=== PATIENT | male | born 1955 | race Caucasian/White ===

== ENCOUNTER 2023-10-24 09:44 | Outpatient (AMB) | payer MEDICARE, SELFPAY ==
--- NOTE | 2023-10-24 09:57 | MHC.OFFVIS ---
Intake Vital Signs 10/24/23 09:58 Height 5 ft 5 in Weight 184 lb BMI 30.6 Intake Visit Reasons: New Pt - Left Knee Pain Intake Note: Óscar is a 68 year old Male who presents as a new patient with Left knee pain and giving way. The patient states that he injured his left knee several years ago while exercising. He twisted his knee and had acute onset of pain. Since that time his symptoms have gotten worse in spite of continued non operative treatments. Did have a cortisone injection given into his left knee several weeks ago. That injection gave him minimal relief. He has also tried physical therapy exercises which aggravated his pain. The patient states that his left knee will give out several times per day. Allergies No Known Allergies Allergy (Verified 10/24/23 10:03) Medication List - Last Reconciled 10/24/23 by Kvng Hirsch MD lisinopril 10 mg PO DAILY PFSH Surgical History (Updated 10/24/23 @ 10:06 by Mercedes Perez CMA) Hx of left knee surgery Hx of prostatectomy (~04/2020) Social History (Updated 10/24/23 @ 10:06 by Mercedes Perez CMA) Patient Tobacco Use Status: Former Tobacco user Current occupational status: retired Physical Exam Vital Signs: BMI result Body Mass Index 30.6 Const Other: Well-nourished well-developed very friendly male awake alert and oriented x3 in no acute distress Extrem Other: Bilateral lower extremity examination shows good capillary refill, no skin lesions noted, normal sensation light touch Left knee examination shows a minimal effusion, minimal crepitus with range of motion, tenderness along his medial joint line, positive Aleks's test, no instability Results Reviewed Results Reviewed: Standing full weight-bearing x-rays of the patient's left knee show mild diffuse joint space narrowing, no acute bony abnormalities Assessment & Plan Assessment & Plan (1) Left knee pain: Code(s): M25.562 - Pain in left knee Plan Mr. Brown presents with progressively worsening left knee pain and mechanical symptoms most likely due to a tear of his medial meniscus. Thus, I will send the patient for an MRI of his left knee for further evaluation. I will see him back once the MRI is completed to discuss the findings and treatment options. He will continue with his activity modifications in the meantime. Feel free to call me at any time should questions regarding his orthopedic management arise. Thank you very much for asking me to see this very friendly gentleman. I spent 22 minutes in reviewing the patient's records and imaging studies, seeing the patient and documenting in the medical record. Orders: Orders XR knee LT 3V Today M25.562 - Pain in left knee MR knee LT wo con Today M25.562 - Pain in left knee Coding Level of Care Code New Pt Level 2 (16135) Diagnoses Left knee pain M25.562
[2023-10-24 09:58] VITALS: BMI 30.6
== END 2023-10-24 10:33 | disposition home or self-care (01) ==
PROVIDERS: Visit Provider Orthopaedic Surgery
DX: M25.562 Pain in left knee (principal)
CPT/HCPCS: 99202

== ENCOUNTER 2023-10-24 16:49 | Outpatient (REF) | payer MEDICARE, SELFPAY | END 2023-10-24 16:50 | disposition home or self-care (01) | LOC: HO.HOSX 16:49 | PROVIDERS: Visit Provider Orthopaedic Surgery | DX: M25.562 Pain in left knee (principal) | CPT/HCPCS: 99202 ==

== ENCOUNTER 2023-10-30 11:34 | Outpatient (AMB) | payer MEDICARE, SELFPAY ==
[2023-10-30 11:50] VITALS: BMI 32.6
--- NOTE | 2023-10-30 11:50 | MHC.OFFVIS ---
Intake Vital Signs 10/30/23 11:50 Height 5 ft 3 in Weight 184 lb BMI 32.6 Intake Visit Reasons: OV-Left knee MRI review Intake Note: Óscar is a 68 year old male who presents for his MRI review of his Left knee. The patient describes his left knee pain as sharp in nature. He has had multiple injections in the past which gave him minimal relief. He has also tried physical therapy exercises which aggravated his pain. States that his knee will give out at times. Allergies No Known Allergies Allergy (Verified 10/30/23 11:53) Medication List - Last Reconciled 10/30/23 by Kvng Hircsh MD lisinopril 10 mg PO DAILY PFSH Surgical History Hx of left knee surgery Hx of prostatectomy (~04/2020) Social History Patient Tobacco Use Status: Former Tobacco user Current occupational status: retired Physical Exam Vital Signs: BMI result Body Mass Index 32.6 Const Other: Well-nourished well-developed very friendly male awake alert and oriented x3 in no acute distress Extrem Other: Bilateral lower extremity examination shows good capillary refill, no skin lesions noted, normal sensation light touch Left knee examination shows a minimal effusion, minimal crepitus with range of motion, tenderness along his medial and lateral joint lines, positive Aleks's test, no instability Results Reviewed Results Reviewed: MRI of the patient's left knee shows mild diffuse degenerative changes as well as tearing of his medial and lateral menisci, no acute bony abnormalities Assessment & Plan Assessment & Plan (1) Left knee pain: Code(s): M25.562 - Pain in left knee Plan Óscar Brown presents with left knee pain and mechanical symptoms due to early degenerative joint disease as well as tearing of his medial and lateral menisci. I had a lengthy discussion with the patient regarding the treatment options. At this point he appears to be failing continued non operative treatments. He is considering undergoing left knee arthroscopic surgery later this year. He will contact my office to pick a surgery date when he is ready to do so. I will see him back 1 week prior to his surgery to answer any final questions that he might have. I spent 22 minutes in reviewing the patient's records and imaging studies, seeing the patient and documenting in the medical record. Coding Level of Care Code Est Pt Level 2 (92916) Diagnoses Left knee pain M25.562
== END 2023-10-30 12:37 | disposition home or self-care (01) ==
PROVIDERS: Visit Provider Orthopaedic Surgery
DX: M17.12 Unilateral primary osteoarthritis, left knee (principal); S83.242A Other tear of medial meniscus, current injury, left knee, initial encounter; S83.282A Other tear of lateral meniscus, current injury, left knee, initial encounter
CPT/HCPCS: 99213

== ENCOUNTER → 2023-10-30 11:34 | Outpatient (BNVA) | payer MEDICARE, SELFPAY | PROVIDERS: Visit Provider Orthopaedic Surgery | DX: M25.562 Pain in left knee (principal) | CPT/HCPCS: 99212 ==